=== PATIENT | female | born 2000 ===

== ENCOUNTER 2019-02-14 12:58 | Inpatient (IN) | payer OTHER ==
[2019-02-14] MEDS ORDERED: TERBUTALINE 0 ML (13:54)
[2019-02-14] MEDS ORDERED: TERBUTALINE 1 MG/ML INJ SC (14:00)
[2019-02-14] MEDS: LACTATED RINGER'S 1,000 ML IV ×5 (14:13→22:27)
[2019-02-14] MEDS ORDERED: OXYTOCIN 30 UNITS/LR 500 ML IV (16:00)
[2019-02-14] MEDS ORDERED: LIDOCAINE 1% (MPF) 30 ML INJ INJ (16:00)
[2019-02-14] MEDS ORDERED: METHYLERGONOVINE 0.2 MG INJ IM (16:00)
[2019-02-14] MEDS ORDERED: MISOPROSTOL 200 MCG TAB PR (16:00)
[2019-02-14] MEDS ORDERED: IBUPROFEN 600 MG TAB PO (16:00)
[2019-02-14] MEDS ORDERED: CARBOPROST 250 MCG INJ IM (16:00)
[2019-02-14 16:12] LABS: ADD MAN DIFF? NO
[2019-02-14 16:14] LABS: BASOPHILS % 0.2 % (0.0-2.0); EOSINOPHILS % 0.2 % (0.0-7.0); HEMATOCRIT 32.8 % (37.0-47.0); HEMOGLOBIN 10.1 g/dl (12.0-16.0); LYMPHOCYTES # 1.7 10^3/ul (0.8-2.9); LYMPHOCYTES % 17.7 % (18.0-55.0); MEAN CORPUSCULAR HEMOGLOBIN 24.6 pg (29.0-33.0); MEAN CORPUSCULAR HGB CONC 30.8 g/dl (32.0-37.0); MEAN PLATELET VOLUME 9.5 fl (7.4-10.4); MONOCYTE # 0.4 10^3/ul (0.3-0.9); MONOCYTES % 4.4 % (0.0-13.0); NEUTROPHIL # 7.6 10^3/ul (1.6-7.5); NEUTROPHILS % 77.1 % (30.0-74.0); PLATELET COUNT 275 10^3/UL (140-415)
[2019-02-14 16:14] LABS: WHITE BLOOD COUNT 9.8 10^3/ul (4.8-10.8)
[2019-02-14] MEDS: AMPICILLIN 2 GM/NS (PMX) 100 ML IV (16:18)
[2019-02-14 16:34] LABS: INR 0.89; PROTIME 12.1 Sec (11.9-14.9); PT RATIO 0.9
[2019-02-14 16:35] LABS: PARTIAL THROMBOPLASTIN TIME 24.1 Sec (23.0-35.0)
[2019-02-14] MEDS ORDERED: FENTAnyl 2MCG/ML-ROPIV 0.2% 100 ML (16:37)
[2019-02-14] MEDS ORDERED: ONDANSETRON 4 MG INJ IV (17:00)
[2019-02-14] MEDS ORDERED: DIPHENHYDRAMINE 50 MG INJ IV (17:00)
[2019-02-14] MEDS ORDERED: NALOXONE (0.4 MG/ML) INJ IV (17:00)
[2019-02-14 17:05] LABS: RAPID PLASMA REAGIN NONREACTIVE (NR)
[2019-02-14 17:24] LABS: HEPATITIS B SURFACE ANTIGEN NEGATIVE (NEGATIVE)
[2019-02-14] MEDS: MINERAL OIL LIGHT 10 ML VIAL TOP (18:30)
[2019-02-14] MEDS ORDERED: AMPICILLIN 1 GM/NS (PMX) 50 ML IV (20:00)
[2019-02-15] MEDS: FENTAnyl 2MCG/ML-ROPIV 0.2% 100 ML BAG EPI ×3 (02:30→11:16)
[2019-02-15] MEDS: LACTATED RINGER'S 1,000 ML IV ×5 (04:08→12:40)
[2019-02-15] MEDS: OXYTOCIN 30 UNITS/LR 500 ML IV ×3 (13:37→17:35)
[2019-02-15] MEDS ORDERED: SODIUM CHLORIDE 0.9% 1L IRRIG IRR (15:30)
[2019-02-15] MEDS: ACETAMINOPHEN 500 MG TAB PO (16:48)
[2019-02-15] MEDS: KETOROLAC 30 MG INJ IV (16:48)
[2019-02-15] MEDS: LACTATED RINGER'S 1,000 ML IV* (18:35)
[2019-02-15] MEDS ORDERED: OXYTOCIN 30 UNITS/LR 500 ML IV (19:00)
[2019-02-15] MEDS ORDERED: MISOPROSTOL 200 MCG TAB PR (19:00)
[2019-02-15] MEDS ORDERED: METHYLERGONOVINE 0.2 MG INJ IM (19:00)
[2019-02-15] MEDS ORDERED: CARBOPROST 250 MCG INJ IM (19:00)
[2019-02-15] MEDS ORDERED: ZOLPIDEM 5 MG TAB PO (19:00)
[2019-02-15] MEDS ORDERED: DIBUCAINE 1% 30 GM OINT TOP (19:00)
[2019-02-15] MEDS ORDERED: HYDROCODONE/APAP (5/325) TAB PO (19:00)
[2019-02-15] MEDS: HYDROCODONE/APAP (5/325) TAB PO (19:17)
[2019-02-15] MEDS: MAGNESIUM HYDROXIDE 30ML CUP PO (21:50)
[2019-02-15] MEDS: SENNA/DOCUSATE NA (8.6MG/50MG) TAB PO (21:51)
[2019-02-15] MEDS: IBUPROFEN 600 MG TAB PO (23:35)
[2019-02-15] MEDS: CEPHALEXIN 500 MG CAP PO (23:35)
[2019-02-15] MEDS: WITCH HAZEL/GLYCERIN PAD PR (23:35)
[2019-02-15] MEDS: LANOLIN HPA 1 PKT TOP (23:35)
[2019-02-15] MEDS: BENZOCAINE 20% 56 ML SPRAY TOP (23:36)
[2019-02-16] MEDS: IBUPROFEN 600 MG TAB PO ×4 (05:40→22:42)
[2019-02-16] MEDS: CEPHALEXIN 500 MG CAP PO ×3 (05:40→17:58)
[2019-02-16 08:14] LABS: ADD MAN DIFF? NO
[2019-02-16 08:16] LABS: BASOPHILS % 0.4 % (0.0-2.0); EOSINOPHILS # 0.1 10^3/ul (0.0-0.5); EOSINOPHILS % 1.4 % (0.0-7.0); HEMATOCRIT 26.9 % (37.0-47.0); HEMOGLOBIN 8.3 g/dl (12.0-16.0); LYMPHOCYTES # 2.8 10^3/ul (0.8-2.9); LYMPHOCYTES % 28.3 % (18.0-55.0); MEAN CORPUSCULAR HEMOGLOBIN 24.8 pg (29.0-33.0); MEAN CORPUSCULAR HGB CONC 30.9 g/dl (32.0-37.0); MEAN CORPUSCULAR VOLUME 80.3 fl (72.0-104.0); MEAN PLATELET VOLUME 9.8 fl (7.4-10.4); MONOCYTE # 0.7 10^3/ul (0.3-0.9); MONOCYTES % 6.5 % (0.0-13.0); NEUTROPHIL # 6.3 10^3/ul (1.6-7.5); NEUTROPHILS % 62.9 % (30.0-74.0); PLATELET COUNT 210 10^3/UL (140-415); RED BLOOD COUNT 3.35 10^6/ul (4.20-5.40); RED CELL DISTRIBUTION WIDTH 15.6 % (11.5-14.5)
[2019-02-16] MEDS: MAGNESIUM HYDROXIDE 30ML CUP PO ×2 (09:00→21:13)
[2019-02-16] MEDS: SENNA/DOCUSATE NA (8.6MG/50MG) TAB PO ×2 (09:00→21:13)
[2019-02-17] MEDS: CEPHALEXIN 500 MG CAP PO ×4 (00:27→18:00)
[2019-02-17] MEDS: IBUPROFEN 600 MG TAB PO ×4 (04:34→18:00)
[2019-02-17] MEDS: SENNA/DOCUSATE NA (8.6MG/50MG) TAB PO (09:00)
[2019-02-17] MEDS: MAGNESIUM HYDROXIDE 30ML CUP PO (09:00)
[2019-02-17] MEDS: MEASLES,MUMPS,RUBELLA VACCINE INJ SC* (11:00)
[2019-02-17] MEDS: VARICELLA VACCINE LIVE/PF 1,350 UNIT/0.5 ML ML SC* (11:00)
[2019-02-17] MEDS: DIPHTH/TET/ACEL PERTUSS (ADULT) 0.5 ML VIAL IM* (11:00)
== END 2019-02-17 18:35 | disposition home or self-care (01) | DRG 807 ==
LOC: OBT 12:58 → PP1 02-15 18:28 → L-D 12:59 → OBT 15:11 → L-D 15:11
PROVIDERS: Obstetrics & Gynecology
PROC: 10E0XZZ Delivery of Products of Conception, External Approach (ICD-10-PCS; principal; 2019-02-15)
DX: O80 Encounter for full-term uncomplicated delivery (principal); Z37.0 Single live birth; Z3A.38 38 weeks gestation of pregnancy
CPT/HCPCS: 62322; 85025; 85610; 85730; 86592; 86850; 86900; 86901; 87340; 90716; 96360